=== PATIENT | female | born 1980 | race Caucasian/White ===

== ENCOUNTER → 2016-09-26 | Outpatient (CLI) | payer OTHER ==
--- NOTE | 2016-09-27 09:06 | MM ---
Reason for exam: follow-up at short interval from prior study. Last mammogram was performed 10 months ago. History: Family history of breast cancer in grandmother. Physical Findings: Nurse Summary: 1cm nodule in the right breast at 10 o'clock (nurse ruperto). MG Diagnostic Mammo RT w CAD Spot compression CC, spot compression MLO, and LM view(s) were taken of the right breast. Prior study comparison: November 21, 2015, bilateral MG diagnostic mammo w CAD NEAL. There are scattered fibroglandular densities. Palpable marker right upper outer quadrant. Similar underlying focal asymmetry. There is no persisting abnormality on spot or true lateral views. These results were verbally communicated with the patient and result sheet given to the patient on 09/26/16. ASSESSMENT: Incomplete: need additional imaging evaluation, BI-RAD 0 RECOMMENDATION: Ultrasound of the right breast. (targeted to the palpable)
--- NOTE | 2016-09-27 09:08 | USB ---
Reason for exam: additional evaluation requested from abnormal screening. History: Family history of breast cancer in grandmother. US Breast Workup Limited RT Right breast ultrasound demonstrates no cystic or solid lesion seen. These results were verbally communicated with the patient and result sheet given to the patient on 09/26/16. ASSESSMENT: Negative, BI-RAD 1 RECOMMENDATION: Routine screening mammogram of both breasts at age 39. (unless clinical indication to start sooner) Manage on a clinical basis with regard to any suspicious palpable abnormality.
== END ==
LOC: RADMAMWWP 12:54
PROVIDERS: ATTEND Family Medicine
DX: N63 Unspecified lump in breast (principal)
CPT/HCPCS: 76642; G0206

== ENCOUNTER 2021-04-29 14:47 | Emergency (ER) | payer OTHER ==
[2021-04-29 14:54] VITALS: RESP 20
[2021-04-29] MEDS ORDERED: ASPIRIN 81 MG PO STA (15:29)
[2021-04-29] MEDS ORDERED: KETOROLAC 15 MG/ML 1 ML VIAL IM STA (15:29)
[2021-04-29] MEDS ORDERED: methocarbamoL 750 MG TAB PO STA (15:31)
[2021-04-29 15:48] LABS: Basophils % (A) 1 %; Eosinophils # (A) 0.1 k/uL (0-0.7); Eosinophils % (A) 1 %; HCT 34.5 % (34.0-46.0); HGB 10.8 gm/dL (11.4-16.0); Lymphocytes # (A) 2.7 k/uL (1.0-4.8); Lymphocytes % (A) 46 %; MCH 29.6 pg (25.0-35.0); MCHC 31.3 g/dL (31.0-37.0); MCV 94.5 fL (80.0-100.0); Mean Platelet Volume 6.5; Monocytes # (A) 0.3 k/uL (0-1.0); Monocytes % (A) 5 %; Neutrophils # (A) 2.6 k/uL (1.3-7.7); Neutrophils % (A) 45 %; Platelet Count 401 k/uL (150-450); RBC 3.65 m/uL (3.80-5.40); RDW 14.9 % (11.5-15.5); WBC 5.9 k/uL (3.8-10.6)
[2021-04-29 15:59] LABS: ALT 14 U/L (4-34); AST 27 U/L (14-36); African American GFR (CKD) >90 (>60 ml/min/1.73 sqM); Albumin 3.8 g/dL (3.5-5.0); Alkaline Phosphatase 74 U/L (38-126); Anion Gap 8 mmol/L; Blood Urea Nitrogen 9 mg/dL (7-17); Calcium 8.3 mg/dL (8.4-10.2); Carbon Dioxide 24 mmol/L (22-30); Chloride 105 mmol/L (98-107); Glucose 102 mg/dL (74-99); Non-African American GFR(CKD) >90 (>60 ml/min/1.73 sqM); Potassium 3.8 mmol/L (3.5-5.1); Sodium 137 mmol/L (137-145); Total Bilirubin 0.3 mg/dL (0.2-1.3); Total Protein 6.5 g/dL (6.3-8.2)
[2021-04-29] MEDS ORDERED: KETOROLAC 15 MG/ML 1 ML VIAL IVP STA (15:59)
[2021-04-29 16:01] LABS: Partial Thromboplastin Time 23.4 sec (22.0-30.0); Prothrombin Time 10.6 sec (9.0-12.0)
--- NOTE | 2021-04-29 16:02 | ED ---
General Adult HPI - General Chief complaint: Chest Pain Stated complaint: Chest Pain, Arm pain/numbness Time Seen by Provider: 04/29/21 15:09 Source: patient, RN notes reviewed, old records reviewed Mode of arrival: wheelchair Limitations: no limitations - History of Present Illness Initial comments: Patient is a 40-year-old female with past medical history remarkable for Graves' disease status post thyroidectomy on levothyroxine, chronic back pain presents emergency Department complaining of left shoulder pain. Describes the pain as sharp located over her left shoulder blade. Appears to be in the trapezius muscle distribution. Worse with movement of her left shoulder. Denies any anterior wall chest pain. Denies any shortness breath. Denies any abdominal pain, nausea, vomiting. Was at work today, and was concerned that maybe her heart possible shoulder injury which is why she presents today. Denies any history of cardiac illness. Does have chronic back pain. It is not on blood thinners. No history of blood clots. 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 States it is worse with movement. Presents with family members for evaluation. - Related Data Previous Rx's Medication Instructions Recorded Lidocaine 5% Patch [Lidoderm 5% 1 patch TOPICAL DAILY PRN #7 patch 04/29/21 Patch] Allergies Allergy/AdvReac Type Severity Reaction Status Date / Time No Known Allergies Allergy Verified 04/29/21 16:53 Review of Systems ROS Statement: Those systems with pertinent positive or pertinent negative responses have been documented in the HPI. Review of Systems: CONST: Denies fever EYES: Denies blurry vision ENT: Denies nasal congestion C/V: Denies Chest pain RESP: Denies shortness of breath GI: Denies abdominal pain : Denies dysuria SKIN: Denies rash. MSK: Endorses left shoulder. NEURO: Denies headache ROS Other: All systems not noted in ROS Statement are negative. Past Medical History Past Medical History: Thyroid Disorder Additional Past Medical History / Comment(s): Graves, neck pain, back pain History of Any Multi-Drug Resistant Organisms: None Reported Past Surgical History: Section Additional Past Surgical History / Comment(s): eye lid, ankle surgery, thyroidectomy Past Psychological History: Anxiety Smoking Status: Vaper Past Alcohol Use History: None Reported Past Drug Use History: None Reported General Exam - General Exam Comments Initial Comments: General: Appears in no acute distress. HEAD: Normal with no signs of head trauma. EYES: PERRLA, EOMI, conjunctiva normal, no discharge. ENT: Hearing grossly intact, normal oropharynx. RESPIRATORY: Clear breath sounds bilaterally. No wheezes, rales, or rhonchi. C/V: Regular rate and rhythm. S1 and S2 auscultated, no edema, peripheral pulses 2+ and intact throughout ABD: Abd is soft, nontender, nondistended EXT: Normal range of motion of all 4 extremity is. No obvious deformity. Patient has a tenderness to palpation over the left scapula over the area of the trapezius muscle. Has some mild paraspinal muscle tenderness that radiates across the body of the muscle. No midline cervical, thoracic, lumbar spine tenderness to palpation. No obvious injuries. SKIN: No rashes or lesions observed on exposed skin. NEURO: Alert and Oriented 4. No focal deficits. Limitations: no limitations Course Vital Signs 04/29/21 04/29/21 14:49 17:32 Temperature 98.1 F 97.8 F Pulse Rate 71 68 Respiratory 20 20 Rate Blood Pressure 135/87 125/83 O2 Sat by Pulse 97 100 Oximetry Medical Decision Making - Medical Decision Making Based on the patient's presentation and physical exam, I believe she is likely experiencing a prescription skeletal left shoulder pain, possible sprain. However patient is concerned regarding her heart. Could be atypical chest pain, we will obtain a cardiac workup including a single troponin. She was in agreement this plan. She'll be admission analgesia for her shoulder as well as an aspirin. Symptoms started at 9 AM. There've been relatively intermittent since, worse with movement of her left shoulder. Patient's EKG shows no signs of acute ischemia.Chest x-ray and left shoulder x- ray revealed no acute injury or process. Laboratory studies revealed no acute findings, including a negative troponin. Patient is mildly anemic with hemoglobin 10.8. Reevaluation come patient's pain is somewhat improved. I discussed the findings with the patient. I believe it is safer to be discharged home at this time. She was in agreement with plan. She'll be given a lidocaine patch. She likely is experiencing a muscle sprain or strain. I will provide the patient with a prescription for lidocaine patch. I instructed the patient to follow up with their PCP in the next 3 days. I explained that the patient should return to the emergency department if they experience any worsening symptoms. Strict return precautions were discussed with the patient. The patient expressed understanding of these instructions. I answered all questions that the patient had. The patient was discharged home in good condition with their prescriptions and follow up information. - Lab Data Result diagrams: 04/29/21 15:39 04/29/21 15:39 Lab Results 04/29/21 04/29/21 04/29/21 Range/Units 15:39 15:39 15:39 WBC 5.9 (3.8-10.6) k/uL RBC 3.65 L (3.80-5.40) m/uL Hgb 10.8 L (11.4-16.0) gm/dL Hct 34.5 (34.0-46.0) % MCV 94.5 (80.0-100.0) fL MCH 29.6 (25.0-35.0) pg MCHC 31.3 (31.0-37.0) g/dL RDW 14.9 (11.5-15.5) % Plt Count 401 (150-450) k/uL MPV 6.5 Neutrophils % 45 % Lymphocytes % 46 % Monocytes % 5 % Eosinophils % 1 % Basophils % 1 % Neutrophils # 2.6 (1.3-7.7) k/uL Lymphocytes # 2.7 (1.0-4.8) k/uL Monocytes # 0.3 (0-1.0) k/uL Eosinophils # 0.1 (0-0.7) k/uL Basophils # 0.0 (0-0.2) k/uL PT 10.6 (9.0-12.0) sec INR 1.0 (<1.2) APTT 23.4 (22.0-30.0) sec Sodium 137 (137-145) mmol/L Potassium 3.8 (3.5-5.1) mmol/L Chloride 105 (98-107) mmol/L Carbon Dioxide 24 (22-30) mmol/L Anion Gap 8 mmol/L BUN 9 (7-17) mg/dL Creatinine 0.60 (0.52-1.04) mg/dL Est GFR (CKD-EPI)AfAm >90 (>60 ml/min/1.73 sqM) Est GFR (CKD-EPI)NonAf >90 (>60 ml/min/1.73 sqM) Glucose 102 H (74-99) mg/dL Calcium 8.3 L (8.4-10.2) mg/dL Magnesium 2.0 (1.6-2.3) mg/dL Total Bilirubin 0.3 (0.2-1.3) mg/dL AST 27 (14-36) U/L ALT 14 (4-34) U/L Alkaline Phosphatase 74 (38-126) U/L Troponin I (0.000-0.034) ng/mL Total Protein 6.5 (6.3-8.2) g/dL Albumin 3.8 (3.5-5.0) g/dL 04/29/21 Range/Units 15:39 WBC (3.8-10.6) k/uL RBC (3.80-5.40) m/uL Hgb (11.4-16.0) gm/dL Hct (34.0-46.0) % MCV (80.0-100.0) fL MCH (25.0-35.0) pg MCHC (31.0-37.0) g/dL RDW (11.5-15.5) % Plt Count (150-450) k/uL MPV Neutrophils % % Lymphocytes % % Monocytes % % Eosinophils % % Basophils % % Neutrophils # (1.3-7.7) k/uL Lymphocytes # (1.0-4.8) k/uL Monocytes # (0-1.0) k/uL Eosinophils # (0-0.7) k/uL Basophils # (0-0.2) k/uL PT (9.0-12.0) sec INR (<1.2) APTT (22.0-30.0) sec Sodium (137-145) mmol/L Potassium (3.5-5.1) mmol/L Chloride (98-107) mmol/L Carbon Dioxide (22-30) mmol/L Anion Gap mmol/L BUN (7-17) mg/dL Creatinine (0.52-1.04) mg/dL Est GFR (CKD-EPI)AfAm (>60 ml/min/1.73 sqM) Est GFR (CKD-EPI)NonAf (>60 ml/min/1.73 sqM) Glucose (74-99) mg/dL Calcium (8.4-10.2) mg/dL Magnesium (1.6-2.3) mg/dL Total Bilirubin (0.2-1.3) mg/dL AST (14-36) U/L ALT (4-34) U/L Alkaline Phosphatase (38-126) U/L Troponin I <0.012 (0.000-0.034) ng/mL Total Protein (6.3-8.2) g/dL Albumin (3.5-5.0) g/dL - EKG Data -: EKG Interpreted by Me EKG Comments: 12-lead Electrocardiogram Interpretation Note EKG was reviewed and interpreted by myself. 12-lead ECG performed at 1459 is interpreted by me as revealing normal sinus rhythm at a rate of 79 beats per minute. Tutor Key is normal. TX interval is 128 ms, QRS duration is 93 ms, QTc is 409 ms.. There were no ST or T wave abnormalities to suggest myocardial is chemia or injury. R wave progression across the precordium was satisfactory. By my interpretation this EKG is non-diagnostic for acute ischemia. Disposition Clinical Impression: Shoulder sprain Disposition: HOME SELF-CARE Condition: Good Instructions (If sedation given, give patient instructions): Shoulder Sprain (ED) Prescriptions: Lidocaine 5% Patch [Lidoderm 5% Patch] 1 patch TOPICAL DAILY PRN #7 patch PRN Reason: Pain Is patient prescribed a controlled substance at d/c from ED?: No Referrals: Ryan Duran MD [Primary Care Provider] - 1-2 days
--- NOTE | 2021-04-29 16:02 | XR ---
EXAMINATION TYPE: XR chest 2V DATE OF EXAM: 04/29/2021 COMPARISON: NONE HISTORY: Chest pain TECHNIQUE: 2 views FINDINGS: Heart and mediastinum are normal. Lungs are clear. Diaphragm is normal. Bony thorax appears normal. IMPRESSION: Normal chest.
--- NOTE | 2021-04-29 16:03 | XR ---
EXAMINATION TYPE: XR shoulder complete LT DATE OF EXAM: 04/29/2021 COMPARISON: NONE HISTORY: Pain TECHNIQUE: 3 views FINDINGS: There is no evidence of fracture nor dislocation. Joint spaces are normal. There are no pat hologic calcifications. IMPRESSION: Negative left shoulder exam.
[2021-04-29] MEDS ORDERED: LIDOCAINE 5% PATCH TOPICAL STA (16:55)
[2021-04-29 17:38] VITALS: BP 125/83; PULSE 68; TEMP 97.8
== END 2021-04-29 17:46 | disposition home or self-care (01) ==
LOC: EC 14:47
DX: S43.402A Unspecified sprain of left shoulder joint, initial encounter (principal); F17.209 Nicotine dependence, unspecified, with unspecified nicotine-induced disorders; X58.XXXA Exposure to other specified factors, initial encounter
CPT/HCPCS: 36415; 93005; 80053; 83735; 84484; 85025; 85610; 85730; 73030; 71046; 99285; 96374; J1885

== ENCOUNTER 2022-08-05 02:58 | Emergency (ER) | payer OTHER ==
--- NOTE | 2022-08-05 04:31 | ED ---
General Adult HPI - General Source: patient, EMS Mode of arrival: EMS Limitations: no limitations <Mingo Tabares - Last Filed: 08/05/22 06:44> <Vandana Miller - Last Filed: 08/05/22 13:19> - General Chief complaint: Psychiatric Symptoms Stated complaint: Mental Health Time Seen by Provider: 08/05/22 03:30 - History of Present Illness Initial comments: Dictation was produced using [employer] dictation software. please excuse any grammatical, word or spelling errors. Chief Complaint: 41-year-old female brought in for mental health evaluation History of Present Illness: 41-year-old female with alleged history of bipolar disease. Patient brought in for suicidal ideation and homicidal ideation. Patient brought in by EMS. She had some agitation at home and became distracted. Patient denies suicidal ideation or homicidal ideation at the bedside. Denies any visual or auditory hallucinations. Denies any medical complaints. The ROS documented in this emergency department record has been reviewed and confirmed by me. Those systems with pertinent positive or negative responses have been documented in the HPI. All other systems are other negative and/or noncontributory. (Mingo Tabares) - Related Data Previous Rx's Medication Instructions Recorded Lidocaine 5% Patch [Lidoderm 5% 1 patch TOPICAL DAILY PRN #7 patch 04/29/21 Patch] Allergies Allergy/AdvReac Type Severity Reaction Status Date / Time No Known Allergies Allergy Verified 08/05/22 03:13 Review of Systems ROS Other: All systems not noted in ROS Statement are negative. <Mingo Tabares - Last Filed: 08/05/22 06:44> ROS Other: All systems not noted in ROS Statement are negative. <Vandana Miller - Last Filed: 08/05/22 13:19> ROS Statement: Those systems with pertinent positive or pertinent negative responses have been documented in the HPI. Past Medical History Past Medical History: Thyroid Disorder Additional Past Medical History / Comment(s): Graves, neck pain, back pain History of Any Multi-Drug Resistant Organisms: None Reported Past Surgical History: Section Additional Past Surgical History / Comment(s): eye lid, ankle surgery, thyroidectomy Past Psychological History: Anxiety, Bipolar, Depression Smoking Status: Vaper Past Alcohol Use History: Occasional Past Drug Use History: None Reported <BayMingo hernadez - Last Filed: 08/05/22 06:44> General Exam Limitations: no limitations <Mingo Tabares - Last Filed: 08/05/22 06:44> - General Exam Comments Initial Comments: PHYSICAL EXAM: General Impression: Alert and oriented x3, not in acute distress HEENT: Normocephalic atraumatic, extra-ocular movements intact, pupils equal and reactive to light bilaterally, mucous membranes moist. Cardiovascular: Heart regular rate and rhythm Chest: Able to complete full sentences, no retractions, no tachypnea Abdomen: abdomen soft, non-tender, non-distended, no organomegaly Musculoskeletal: Pulses present and equal in all extremities, no peripheral edema Motor: no focal deficits noted Neurological: CN II-XII grossly intact, no focal motor or sensory deficits noted Skin: Intact with no visualized rashes Psych: Normal affect and mood (RaysaAshlyphillip Issa) Course Vital Signs 08/05/22 08/05/22 02:59 12:38 Temperature 97.2 F L 98.0 F Pulse Rate 90 92 Respiratory 18 20 Rate Blood Pressure 116/83 120/68 O2 Sat by Pulse 95 97 Oximetry Medical Decision Making <TessrachelAshlyphillip Issa - Last Filed: 08/05/22 06:44> - Medical Decision Making Was pt. sent in by a medical professional or institution ([facility], [facility], urgent care, hospital, or correction...) When possible be specific @ -No Did you speak to anyone other than the patient for history (EMS, parent, family, police, friend...)? What history was obtained from this source @ -No Did you review nursing and triage notes (agree or disagree)? Why? @ -I reviewed and agree with nursing and triage notes Were old charts reviewed (outside hosp., previous admission, EMS record, old EKG, old radiological studies, urgent care reports/EKG's, correction records)? Report findings @ -No old charts were reviewed Differential Diagnosis (chest pain, altered mental status, abdominal pain women, abdominal pain men, vaginal bleeding, musculoskeletal, weakness, fever, dyspnea, syncope, headache, dizziness, GI bleed, back pain, seizure, CVA, palpatations, mental health)? @ -Differential Mental Health: Depression, anxiety, bipolar, psychosis, schizophrenia, borderline personality, situational depression, adjustment disorder, behavioral disorder, brain tumor, malingering, substance abuse, encephalopathy, medication reaction, dementia, hypothyroidism, degenerative neurologic disorder, lupus.... This is not meant to be all-inclusive list EKG interpreted by me (3pts min.). @ -None done X-rays interpreted by me (1pt min.). @ -None done CT interpreted by me (1pt min.). @ -None done U/S interpreted by me (1pt. min.). @ -None done What testing was considered but not performed or refused? (CT, X-rays, U/S, labs)? Why? @ -None What meds were considered but not given or refused? Why? @ -None Did you discuss the management of the patient with other professionals (professionals i.e. , PA, PUTTY MAKER, lab, RT, psych nurse, director of social media marketing, soil scientist, teacher, chief technical officer, classification case manager)? Give summary @ -No Was smoking cessation discussed for >3mins.? @ -No Was critical care preformed (if so, how long)? @ -No Were there social determinants of health that impacted care today? How? (Homelessness, low income, unemployed, alcoholism, drug addiction, transportation, low edu. Level, literacy, decrease access to med. care, correction, rehab)? @ -No Was there de-escalation of care discussed even if they declined (Discuss DNR or withdrawal of care, Hospice)? DNR status @ -No What co-morbidities impacted this encounter? (DM, HTN, Smoking, COPD, CAD, Cancer, CVA, ARF, Chemo, Hep., AIDS, mental health diagnosis, sleep apnea, morbid obesity)? @ -None Was patient admitted / discharged? Hospital course, mention meds given and route, prescriptions, significant lab abnormalities, going to OR and other pertinent info. @ -41 Year-old female sent to the emergency room for psychiatric evaluation. Will signs stable. Physical examination benign. Patient has history of bipolar disorder. Pending psychiatric evaluation and psychiatric recommendations. Patient is signed out to oncoming physician Undiagnosed new problem with uncertain prognosis? @ -No Drug Therapy requiring intensive monitoring for toxicity (Heparin, Nitro, Insulin, Cardizem)? @ -No Were any procedures done? @ -No Diagnosis/symptom? Acute, or Chronic, or Acute on Chronic? Uncomplicated (without systemic symptoms) or Complicated (systemic symptoms)? @ -1. Psychiatric evaluation (Mingo Tabares) Disposition <Mingo Tabares - Last Filed: 08/05/22 06:44> Is patient prescribed a controlled substance at d/c from ED?: No Time of Disposition: 13:19 <Vandana Miller - Last Filed: 08/05/22 13:19> Clinical Impression: Bipolar disorder Disposition: HOME SELF-CARE Condition: Stable Instructions (If sedation given, give patient instructions): Bipolar Disorder (ED) Referrals: Ryan Duran MD [Primary Care Provider] - 1-2 days
--- NOTE | 2022-08-05 11:39 | XR ---
EXAMINATION TYPE: XR hand complete bilateral DATE OF EXAM: 08/05/2022 11:11 AM INDICATION: Patient age:Female; 41 years old; Reason for study: pain after punching parekh;. COMPARISON: None TECHNIQUE: Frontal, lateral and oblique views of the bilateral hands were obtained. FINDINGS: Normal alignment of the visualized joints. No acute osseous pathology is identified. No e vidence of soft tissue swelling. IMPRESSION: No acute osseous pathology.
[2022-08-05 13:40] VITALS: BP 112/68; PULSE 72; RESP 15; TEMP 98.1
== END 2022-08-05 13:41 | disposition home or self-care (01) ==
LOC: EC 02:58
DX: F31.9 Bipolar disorder, unspecified (principal); Z86.59 Personal history of other mental and behavioral disorders; F17.290 Nicotine dependence, other tobacco product, uncomplicated
CPT/HCPCS: 82075; 99285